=== PATIENT | female | born 1995 | race Caucasian/White ===

== ENCOUNTER 2017-07-12 12:12 | Emergency (ER) | payer OTHER ==
[~2017-07-12] VITALS: Ht 160 cm; Wt 101.2 kg
[2017-07-12] MEDS ORDERED: IV NORMAL SALINE 1000ML BAG 1,000 ML IV ONE (12:30)
--- NOTE | 2017-07-12 12:35 | PHYS DOC ---
Adult General Chief Complaint Chief Complaint: CHEST PAIN HPI HPI Patient is a 21 year old F who presents with chest pain. Patient was out walking and developed some centralized chest pain that progressively got worse. Patient has no cardiac history. Patient is 7 months with her first . Patient has no history of preeclampsia, gestational diabetes, gestational hypertension. Patient states the chest pain has resolved once arriving to the emergency room. Patient describes the pain as sharp in nature and nonradiating and not associated with anything. Patient denies any fevers. Patient denies any shortness of breath. Patient denies any nausea/vomiting/ diarrhea. Patient has no other complaints. Review of Systems Review of Systems GEN: Denies fevers, chills, sweats HEENT: Denies blurred vision, sore throat CV: chest pain RESP: Denies shortness of air, cough GI: Denies n/v/d NEURO: Denies confusion, dizziness MSK: Denies weakness, joint pain/swelling Current Medications Current Medications Current Medications Medications (Trade) Dose Ordered Sig/Jamison Start Time Stop Time Status Last Admin Dose Admin Sodium Chloride 1,000 ml @ 1,000 mls/hr 1X ONCE 07/12/17 12:30 07/12/17 13:29 DC 07/12/17 13:23 1,000 MLS/HR Allergies Allergies Allergies Coded Allergies Type Severity Reaction Last Updated Verified No Known Drug Allergies 07/12/17 No Physical Exam Physical Exam GEN.: No apparent distress. Alert and oriented. HEENT: Head is normocephalic, atraumatic NECK: Supple. LUNGS: CTAB. HEART: RRR, S1, S2 present. Peripheral pulses intact ABDOMEN: Soft, nontender. Positive bowel sounds, gravid uterus EXTREMITIES: Without any cyanosis. NEUROLOGIC: Normal speech, normal tone PSYCHIATRIC: Normal affect, normal mood. SKIN: No ulcerations Current Patient Data Lab Values Laboratory Tests Test 07/12/17 13:20 White Blood Count 10.1 x10^3/uL (4.0-11.0) Red Blood Count 3.96 x10^6/uL (3.50-5.40) Hemoglobin 12.1 g/dL (12.0-15.5) Hematocrit 35.4 % (36.0-47.0) L Mean Corpuscular Volume 89 fL (79-100) Mean Corpuscular Hemoglobin 31 pg (25-35) Mean Corpuscular Hemoglobin Concent 34 g/dL (31-37) Red Cell Distribution Width 13.6 % (11.5-14.5) Platelet Count 218 x10^3/uL (140-400) Neutrophils (%) (Auto) 71 % (31-73) Lymphocytes (%) (Auto) 18 % (24-48) L Monocytes (%) (Auto) 7 % (0-9) Eosinophils (%) (Auto) 2 % (0-3) Basophils (%) (Auto) 1 % (0-3) Neutrophils # (Auto) 7.2 x10^3uL (1.8-7.7) Lymphocytes # (Auto) 1.8 x10^3/uL (1.0-4.8) Monocytes # (Auto) 0.7 x10^3/uL (0.0-1.1) Eosinophils # (Auto) 0.2 x10^3/uL (0.0-0.7) Basophils # (Auto) 0.1 x10^3/uL (0.0-0.2) Sodium Level 140 mmol/L (136-145) Potassium Level 3.4 mmol/L (3.5-5.1) L Chloride Level 107 mmol/L (98-107) Carbon Dioxide Level 22 mmol/L (21-32) Anion Gap 11 (6-14) Blood Urea Nitrogen 4 mg/dL (7-20) L Creatinine 0.5 mg/dL (0.6-1.0) L Estimated GFR (Cockcroft-Gault) 158.9 BUN/Creatinine Ratio 8 (6-20) Glucose Level 94 mg/dL (70-99) Calcium Level 8.9 mg/dL (8.5-10.1) Total Bilirubin 0.1 mg/dL (0.2-1.0) L Aspartate Amino Transferase (AST) 12 U/L (15-37) L Alanine Aminotransferase (ALT) 16 U/L (14-59) Alkaline Phosphatase 66 U/L (46-116) Troponin I Quantitative < 0.017 ng/mL (0.000-0.055) Total Protein 6.2 g/dL (6.4-8.2) L Albumin 2.6 g/dL (3.4-5.0) L Albumin/Globulin Ratio 0.7 (1.0-1.7) L Laboratory Tests 07/12/17 13:20 Laboratory Tests 07/12/17 13:20 EKG EKG 1228: EKG shows normal sinus rhythm rate of 91 no STEMI[] Radiology/Procedures Radiology/Procedures [] Course & Med Decision Making Course & Med Decision Making Pertinent Labs and Imaging studies reviewed. (See chart for details) Patient was seen and examined emergency room cardiac workup was ordered 1430: Patient was updated on lab results and reevaluated in which her chest pain resolved patient felt much better like to go home. Prolonged discussion the patient about the potential risk of a PE given that she is however based on physical exam, vital signs, I have low suspicion for PE MDM: After reviewing the chart, CC/HPI/PMH, physical exam, [lab results], I do not believe the patient has emergent medical condition warranting further workup and /or admission at this time. I have low suspicion for PE and do not believe a CT scan of the chest is warranted at this time. This decision was discussed with the patient who agrees and will follow-up with her RESIDENCE COUNSELOR once returning back on [place]. Patient is stable for discharge. Additional verbal discharge instructions were provided to the patient and that if symptoms get worse or any new symptoms arise that are worrisome to the patient she is to return to the emergency room immediately [] Dragon Disclaimer Dragon Disclaimer This electronic medical record was generated, in whole or in part, using a voice recognition dictation system. Departure Departure Impression: Primary Impression: Chest pain Disposition: 01 HOME, SELF-CARE Condition: IMPROVED Patient Instructions: Chest Pain (Nonspecific) Additional Instructions: Please follow-up with your RESIDENCE COUNSELOR once returning back home. ADONIS GASTON DO Jul 12, 2017 12:35
--- NOTE | 2017-07-12 12:56 | EKG ---
[facility] [address] [place] [address] Test Date: 2017-07-12 Test Time: 12:24:44 Pat Name: JEAN NAVARRO Department: Room: Gender: F Head [employer] Operator: : [id number] Requested By: ADONIS GASTON Order Number: [id number] Reading MD: Su Plunkett Measurements Intervals [place] Rate: 91 P: 21 NV: 128 QRS: 58 QRSD: 98 T: 14 QT: 370 QTc: 457 Interpretive Statements SINUS RHYTHM NORMAL EKG Electronically Signed On 07-14-2017 12:03:22 CDT by Su Plunkett
[2017-07-12 13:39] LABS: BASO # 0.1 x10^3/uL (0.0-0.2); BASO % 1 % (0-3); EOS % 2 % (0-3); HEMATOCRIT 35.4 % (36.0-47.0); HEMOGLOBIN 12.1 g/dL (12.0-15.5); LYMPH # 1.8 x10^3/uL (1.0-4.8); LYMPH % 18 % (24-48); MEAN CORPUSCULAR HEMOGLOBIN 31 pg (25-35); MEAN CORPUSCULAR HGB CONC 34 g/dL (31-37); MEAN CORPUSCULAR VOLUME 89 fL (79-100); MONO % 7 % (0-9); NEUT % 71 % (31-73); PLATELET COUNT 218 x10^3/uL (140-400); RED BLOOD COUNT 3.96 x10^6/uL (3.50-5.40); RED CELL DISTRIBUTION WIDTH 13.6 % (11.5-14.5); WHITE BLOOD COUNT 10.1 x10^3/uL (4.0-11.0)
[2017-07-12 13:41] LABS: CALCIUM 8.9 mg/dL (8.5-10.1); CREATININE 0.5 mg/dL (0.6-1.0); GFR 158.9; POTASSIUM 3.4 mmol/L (3.5-5.1)
[2017-07-12 13:47] LABS: ALBUMIN 2.6 g/dL (3.4-5.0); ALBUMIN/GLOBULIN RATIO 0.7 (1.0-1.7); TOTAL BILIRUBIN 0.1 mg/dL (0.2-1.0); TOTAL PROTEIN 6.2 g/dL (6.4-8.2)
[2017-07-12 14:19] VITALS: BP 104/67
== END 2017-07-12 14:48 | disposition home or self-care (01) ==
LOC: ER 12:12
DX: O26.892 Other specified pregnancy related conditions, second trimester (principal); R07.89 Other chest pain; Z3A.00 Weeks of gestation of pregnancy not specified
CPT/HCPCS: 36415; 80053; 84484; 85025; 93005; 96360; 99285; J7030